=== PATIENT | female | born 1940 | race Caucasian/White ===

== ENCOUNTER 2017-07-01 09:05 | Emergency (ER) | payer MEDICARE ==
[~2017-07-01] VITALS: Ht 160 cm; Wt 80.0 kg
[~2017-07-01 09:05] MED LIST: AZASITE1 % OP; FLEXERIL OR; NAPROSYN500 MG OR; PLAVIX75 MG OR; SYNTHROID50 MCG OR; TETRACYCLINE250 MG OR; VOLTAREN1 % EX
[2017-07-01] MEDS ORDERED: NAPROXEN DR500 MG PO (10:45)
[2017-07-01] MEDS ORDERED: TRAMADOL HYDROC50 MG PO (10:45)
[2017-07-01 10:55] VITALS: BP 154/81
== END 2017-07-01 11:09 | disposition home or self-care (01) ==
LOC: ED 09:05
DX: S22.089A Unspecified fracture of T11-T12 vertebra, initial encounter for closed fracture (principal); W19.XXXA Unspecified fall, initial encounter; Y93.89 Activity, other specified; Y92.89 Other specified places as the place of occurrence of the external cause; R10.31 Right lower quadrant pain; M54.5 Low back pain

== ENCOUNTER 2017-08-12 16:36 | Emergency (ER) | payer MEDICARE ==
[~2017-08-12] VITALS: Ht 160 cm; Wt 64.0 kg
[~2017-08-12 16:36] MED LIST changes: +NAPROXEN DR500 MG PO; +TRAMADOL HYDROC50 MG PO
[2017-08-12 17:20] LABS: HEMATOCRIT 44.1 % (37.0-47.0); HEMOGLOBIN 15.3 g/dl (12.0-16.0); IMMATURE GRANULOCYTES 0.3 % (0.0-1.0); MEAN CELL VOLUME 92.6 fL CALC (80.0-100.0); MEAN CORPUSCULAR HGB 32.1 pG CALC (26.0-32.0); MEAN CORPUSCULAR HGB CONC 34.7 g/L CALC (32.0-36.0); NEUT# 3.22 thou/uL (2.00-7.15); RED BLOOD COUNT 4.76 mill/uL (4.20-5.60); RED CELL DISTRI WIDTH 11.9 % (11.5-15.5)
[2017-08-12 17:37] LABS: ALBUMIN 4.8 g/dL (3.2-5.0); ALKALINE PHOSPHATASE 116 u/l (38-126); ANION GAP 20 (6-22 (CALC)); BUN 13 mg/dL (8-23); BUN/CREATININE RATIO 22 (12-20 (CALC)); CARBON DIOXIDE 21 mmol/l (22-30); CHLORIDE 108 mmol/l (95-108); CREATININE 0.6 mg/dL (0.5-1.0); GFR > 60 ML/MIN (>=60 (CALC)); GFR FOR AFR.AMER. > 60 ML/MIN (>=60 (CALC)); POTASSIUM 4.1 mmol/l (3.5-5.1); SGOT/AST 21 u/l (9-36); SGPT/ALT 36 u/l (11-66); SODIUM 145 mmol/l (137-146); TOTAL PROTEIN 7.8 g/dL (6.3-8.2)
[2017-08-12 17:41] LABS: URINE BILIRUBIN - DIPSTICK NEGATIVE (NEGATIVE); URINE BLOOD DIPSTICK MODERATE (NEGATIVE); URINE COLOR YELLOW; URINE GLUCOSE - DIPSTICK NEGATIVE (NEGATIVE); URINE KETONE NEGATIVE (NEGATIVE); URINE LEUK ESTERASE NEGATIVE (NEGATIVE); URINE NITRITE - DIPSTICK NEGATIVE (Negative); URINE PROTEIN - DIPSTICK NEGATIVE (NEG-TRACE); URINE SPECIFIC GRAVITY <=1.005; URINE UROBILINOGEN - DIPSTICK 0.2 E.U./dL (0.2)
[2017-08-12 17:42] LABS: URINE CLARITY CLEAR
[2017-08-12 17:51] LABS: URINE SQUAMOUS EPITHELIAL CELL FEW EPI/hpf (0-FEW); URINE WBC 0-2 WBC/hpf (0-5)
[2017-08-12] MEDS ORDERED: ATIVAN1 MG PO (18:59)
[2017-08-12] MEDS ORDERED: AMOXICILLIN500 M2 PO (18:59)
[2017-08-12] MEDS ORDERED: ANTIVERT PO (18:59)
[2017-08-12 19:50] VITALS: BP 163/84
== END 2017-08-12 19:50 | disposition home or self-care (01) ==
LOC: ED 16:36
PROVIDERS: Emergency Medicine
DX: R42 Dizziness and giddiness (principal); H66.91 Otitis media, unspecified, right ear
CPT/HCPCS: J2060